=== PATIENT | female | born 1970 ===

== ENCOUNTER 2023-06-01 06:23 | Day surgery (SDC) | payer BC ==
[2023-06-01] MEDS ORDERED: Dextrose 5%-0.45% NaCl 1,000 ML IV SCH (06:30)
[2023-06-01] MEDS ORDERED: Midazolam 1 MG/ML 2 ML SDV ONE (06:47)
[2023-06-01] MEDS ORDERED: fentaNYL 100 MCG/2 ML SDV ONE (06:47)
[2023-06-01] MEDS ORDERED: fentaNYL 100 MCG/2 ML SDV IV ONE ×6 (07:16→07:27)
[2023-06-01] MEDS ORDERED: Midazolam 1 MG/ML 2 ML SDV IV ONE ×7 (07:18→07:28)
== END 2023-06-01 09:58 | disposition home or self-care (01) ==
LOC: DL.ENDO 06:23
PROVIDERS: ATTEND Internal Medicine Gastroenterology
DX: K52.9 Noninfective gastroenteritis and colitis, unspecified (principal); D12.3 Benign neoplasm of transverse colon; K55.20 Angiodysplasia of colon without hemorrhage; K63.89 Other specified diseases of intestine; K21.9 Gastro-esophageal reflux disease without esophagitis; M81.0 Age-related osteoporosis without current pathological fracture; Q21.12 Patent foramen ovale; I10 Essential (primary) hypertension; E66.09 Other obesity due to excess calories; Z98.818 Other dental procedure status; Z98.890 Other specified postprocedural states; Z68.27 Body mass index [BMI] 27.0-27.9, adult
CPT/HCPCS: J2250; J3010; J7042